=== PATIENT | female | born 1945 | race Hispanic/Latino ===

== ENCOUNTER → 2017-03-01 | Outpatient (CLI) | payer MEDICARE ==
[~2017-03-01] MED LIST: AMLO10TA4 PO; ASPI-555 PO; CALC600T12 PO; LISI40TA4 PO; METF500T6 PO; MULT-1301 PO; OMEG-148 PO; PRAV40TA3 PO
== END | disposition home or self-care (01) ==
LOC: SHCH 12:39
PROVIDERS: ATTEND Internal Medicine Cardiovascular Disease
DX: I87.2 Venous insufficiency (chronic) (peripheral) (principal)
CPT/HCPCS: 93970

== ENCOUNTER 2017-03-12 08:38 | Day surgery (SDC) | payer MEDICARE ==
[~2017-03-12] VITALS: Ht 160 cm; Wt 86.2 kg
[~2017-03-12 08:38] MED LIST changes: +SODIUM CHLORIDE 0.9% 1000ML 1,000 ML IV ONE
[2017-03-12 09:40] VITALS: BP 152/67
[2017-03-12] MEDS ORDERED: MIDAZOLAM HCL 1 MG/ML 2ML VIAL ONE (11:22)
[2017-03-12] MEDS ORDERED: MEPERIDINE-PF 50 MG/ML SYG ONE ×2 (11:22)
[2017-03-12 11:42] VITALS: BP 107/58
== END 2017-03-12 12:35 ==
LOC: ENDO 08:38 → DAH 08:38 → ENDO 12:35
PROVIDERS: ATTEND Internal Medicine Gastroenterology
DX: Z12.11 Encounter for screening for malignant neoplasm of colon (principal); K57.30 Diverticulosis of large intestine without perforation or abscess without bleeding; I10 Essential (primary) hypertension; E78.5 Hyperlipidemia, unspecified; M19.90 Unspecified osteoarthritis, unspecified site; E11.39 Type 2 diabetes mellitus with other diabetic ophthalmic complication; H40.9 Unspecified glaucoma; Z90.49 Acquired absence of other specified parts of digestive tract; Z79.899 Other long term (current) drug therapy; Z98.890 Other specified postprocedural states; Z79.84 Long term (current) use of oral hypoglycemic drugs
CPT/HCPCS: 82948 ×2; A4606; G0121; J2175 ×2; J2250; J7030

== ENCOUNTER → 2023-09-03 | Outpatient (CLI) | payer MEDICARE ==
[~2023-09-03] MED LIST changes: -ASPI-555 PO; +ASPI-556 PO; +CALC-1125 PO; -CALC600T12 PO; -LISI40TA4 PO; +LISI40TA9 PO; +METF-444 PO; -METF500T6 PO; -SODIUM CHLORIDE 0.9% 1000ML 1,000 ML IV ONE
== END | disposition home or self-care (01) ==
LOC: SHCH 09:05
PROVIDERS: ATTEND Internal Medicine Cardiovascular Disease
DX: I08.3 Combined rheumatic disorders of mitral, aortic and tricuspid valves (principal); I11.9 Hypertensive heart disease without heart failure; R01.1 Cardiac murmur, unspecified; I45.10 Unspecified right bundle-branch block; E11.9 Type 2 diabetes mellitus without complications; E78.5 Hyperlipidemia, unspecified; I44.7 Left bundle-branch block, unspecified; I48.91 Unspecified atrial fibrillation
CPT/HCPCS: 93306

== ENCOUNTER → 2024-04-09 | Outpatient (CLI) | payer MEDICARE | END | disposition home or self-care (01) | LOC: SHCH 07:55 | PROVIDERS: ATTEND Internal Medicine Cardiovascular Disease | DX: I48.19 Other persistent atrial fibrillation (principal) | CPT/HCPCS: 93306 ==

== ENCOUNTER 2024-06-20 08:38 | Day surgery (SDC) | payer MEDICARE ==
[2024-06-18 08:58] LABS: BASOPHILS # (AUTO) 0.05 K/uL (0.00-0.20); BASOPHILS % (AUTO) 0.8 % (0.0-5.0); EOSINOPHILS # (AUTO) 0.07 K/uL (0.00-0.70); EOSINOPHILS % (AUTO) 1.1 % (0.0-8.0); HEMATOCRIT 32.6 % (36-48); IMMATURE GRANULOCYTE ABSOLUTE 0.02 K/uL (0-1); LYMPHOCYTES # (AUTO) 1.2 K/uL (1.0-4.8); LYMPHOCYTES % (AUTO) 17.8 % (21.0-51.0); MEAN CORPUSCULAR HEMOGLOBIN 30.7 pg (27.0-33.0); MEAN CORPUSCULAR HGB CONC 33.4 g/dL (32.0-36.0); MEAN CORPUSCULAR VOLUME 91.8 fL (79-99); MONOCYTES # (AUTO) 0.7 K/uL (0.1-1.0); MONOCYTES % (AUTO) 11.2 % (3.0-13.0); NEUTROPHILS # (AUTO) 4.4 K/uL (1.8-7.7); NEUTROPHILS % (AUTO) 68.8 % (40.0-77.0); PLATELET COUNT (AUTO) 230 K/uL (130-400); RED BLOOD CELL COUNT(AUTO) 3.55 MIL/uL (4.00-5.50); RED CELL DISTRIBUTION WIDTH 15.5 % (11.0-15.5); WHITE BLOOD COUNT (AUTO) 6.5 K/uL (4.8-10.8)
[2024-06-18 09:05] LABS: CREATININE 1.1 mg/dL (0.5-1.0)
[2024-06-18 09:06] VITALS: BP 140/60; PULSE 60; RESP 18; TEMP 97
--- NOTE | 2024-06-18 09:20 | NUR ---
notified dr jones was informed by of potassium level. received orders to repeat but pt left and no answer after multiple attempts and messages left. will continue to try to reach daughter and pt.
[2024-06-18 10:57] LABS: POTASSIUM 5.4 mmol/L (3.5-5.1)
--- NOTE | 2024-06-18 11:21 | NUR ---
preop pt had repeat bmp done. potassium level 5.4. dr jones notified and received orders to repeat potassium on admission day.
[~2024-06-20] VITALS: Ht 154.9 cm; Wt 64.9 kg
[~2024-06-20 08:38] MED LIST changes: +ALEN70TA80 PO; -AMLO10TA4 PO; +APIX5TAB PO; -ASPI-556 PO; +ATOR20TA65 PO; -CALC-1125 PO; +CYCL30DR OP; +DAPA10TA PO; +DRON400T7 PO; +FURO20TA4 PO; +IRON COMPLEX PO; +LATA2.5D14 OU; +METO50TA18 PO; -MULT-1301 PO; -OMEG-148 PO; +OMEG100033 PO; +PANT40TA54 PO; +PIOG30TA70 PO; -PRAV40TA3 PO; +[UNRECOGNIZED DRUG - CODE] PO; +[UNRECOGNIZED DRUG - OTHER] PO
--- NOTE | 2024-06-20 09:03 | EKG ---
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
[2024-06-20 09:10] VITALS: BP 135/69; PULSE 65; RESP 15; TEMP 97.3
[2024-06-20] MEDS ORDERED: proPOFol 10 MG/ML 20ML VIAL IV ONE (09:40)
--- NOTE | 2024-06-20 10:16 | NUR ---
PT SYNCHRONIZED CARDIOVERTED AT [address] ESCOBAR PT TOLERATED WELL NAD VSS.
--- NOTE | 2024-06-20 10:22 | EKG ---
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 : 1945 Requested By: RACHEL ESCOBAR Order Number: [id number] Reading MD: Pedro Gil Measurements Intervals [place] Rate: 44 P: 76 MO: 214 QRS: -46 QRSD: 128 T: 10 QT: 510 QTc: 436 Interpretive Statements Marked sinus bradycardia with 1st degree AV block with premature atrial complexes Left axis deviation Nonspecific intraventricular block Compared to ECG 06/20/2024 09:01:37 Atrial premature complex(es) now present First degree AV block now present Atrial fibrillation no longer present Ventricular premature complex(es) no longer present Myocardial infarct finding no longer present Electronically Signed On 06-22-2024 13:05:09 CDT by Pedro Gil Please click the below link to view image of tracing.
[2024-06-20 10:25] VITALS: BP 114/37; PULSE 43; RESP 15; TEMP 97.1
--- NOTE | 2024-06-20 10:25 | NUR ---
PT AWAKE SPEAKING WITH STAFF VSS NAD DAUGHTER AT BEDSIDE.
[2024-06-20 10:40] VITALS: BP 103/39; PULSE 43; RESP 15
[2024-06-20 10:55] VITALS: BP 117/37; PULSE 43; RESP 15
[2024-06-20 11:10] VITALS: BP 126/47; PULSE 44; RESP 15
--- NOTE | 2024-06-26 10:18 | PRN ---
Procedure Note Date of procedure: 06/20/24 Diagnosis: Persistent atrial fibrillation Procedure: Cardioversion Physician: Manav Escobar MD The patient was brought to the day patient area in a fasting state. Anesthesia was provided by the anesthesia service. Cardioversion was performed with a synchronized shock at 150 joules resulting in sinus rhythm. The patient tolerated the procedure well. Final diagnosis: Persistent atrial fibrillation, status post successful cardiove rsion Disposition: The patient will be discharged later today and will follow up with me in the office in approximately two weeks. MANAV ESCOBAR MD June 26, 2024 10:17
== END 2024-06-20 11:15 | disposition home or self-care (01) ==
LOC: DAH 08:38
PROVIDERS: ATTEND Internal Medicine Cardiovascular Disease
DX: I48.19 Other persistent atrial fibrillation (principal); I44.0 Atrioventricular block, first degree; E11.9 Type 2 diabetes mellitus without complications; E78.5 Hyperlipidemia, unspecified; I11.0 Hypertensive heart disease with heart failure; I50.9 Heart failure, unspecified; Z90.49 Acquired absence of other specified parts of digestive tract; Z96.651 Presence of right artificial knee joint; Z88.1 Allergy status to other antibiotic agents; Z79.899 Other long term (current) drug therapy
CPT/HCPCS: 80048 ×2; 85025; 36415 ×2; 92960; 93005 ×2; 84132; 82948; J2704; A4620; A4215; A4222; A4221; A4663; A4216; A4606; A4223 ×3; J3490

== ENCOUNTER 2024-08-06 07:15 | Day surgery (SDC) | payer MEDICARE ==
[2024-08-04 10:27] LABS: BASOPHILS # (AUTO) 0.04 K/uL (0.00-0.20); BASOPHILS % (AUTO) 0.9 % (0.0-5.0); EOSINOPHILS # (AUTO) 0.03 K/uL (0.00-0.70); EOSINOPHILS % (AUTO) 0.7 % (0.0-8.0); HEMATOCRIT 33.8 % (36-48); IMMATURE GRANULOCYTE ABSOLUTE 0.02 K/uL (0-1); LYMPHOCYTES # (AUTO) 1.2 K/uL (1.0-4.8); LYMPHOCYTES % (AUTO) 26.7 % (21.0-51.0); MEAN CORPUSCULAR HEMOGLOBIN 30.7 pg (27.0-33.0); MEAN CORPUSCULAR HGB CONC 33.1 g/dL (32.0-36.0); MEAN CORPUSCULAR VOLUME 92.6 fL (79-99); MONOCYTES # (AUTO) 0.5 K/uL (0.1-1.0); MONOCYTES % (AUTO) 11.4 % (3.0-13.0); NEUTROPHILS # (AUTO) 2.7 K/uL (1.8-7.7); NEUTROPHILS % (AUTO) 59.9 % (40.0-77.0); PLATELET COUNT (AUTO) 209 K/uL (130-400); RED BLOOD CELL COUNT(AUTO) 3.65 MIL/uL (4.00-5.50); RED CELL DISTRIBUTION WIDTH 16.9 % (11.0-15.5); WHITE BLOOD COUNT (AUTO) 4.6 K/uL (4.8-10.8)
[2024-08-04 10:38] LABS: CREATININE 1.1 mg/dL (0.5-1.0); POTASSIUM 4.4 mmol/L (3.5-5.1)
--- NOTE | 2024-08-04 10:50 | EKG ---
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
[2024-08-04 11:23] VITALS: BP 145/64; PULSE 54; RESP 18; TEMP 97.7
[~2024-08-06] VITALS: Ht 154.9 cm; Wt 62.7 kg
[~2024-08-06 07:15] MED LIST changes: +AMIO200T73 PO; -DRON400T7 PO; +LISI40TA15 PO; -LISI40TA9 PO; +METO25TA6 PO; -METO50TA18 PO
[2024-08-06 07:40] VITALS: BP 159/84; PULSE 59; RESP 15; TEMP 97.4
--- NOTE | 2024-08-06 08:14 | EKG ---
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 : 1945 Requested By: RACHEL ESCOBAR Order Number: [id number] Reading MD: James Anthony Measurements Intervals [place] Rate: 71 P: 0 VT: 0 QRS: 236 QRSD: 140 T: 84 QT: 434 QTc: 474 Interpretive Statements Atrial fibrillation Nonspecific intraventricular conduction delay Inferior infarct, old Anterior infarct, old Compared to ECG 08/04/2024 09:56:23 Intraventricular conduction delay now present Myocardial infarct finding now present Sinus rhythm no longer present INTRAVENTRICULAR CONDUCTION DELAYstill present Early repolarization no longer present Electronically Signed On 08-06-2024 20:59:45 CDT by James Anthony Please click the below link to view image of tracing.
[2024-08-06] MEDS ORDERED: 0.9%NACL 1000ML 1,000 ML IV SCH (09:30)
[2024-08-06] MEDS ORDERED: proPOFol 10 MG/ML 20ML VIAL IV ONE (09:39)
--- NOTE | 2024-08-06 10:12 | NUR ---
PT SYNCHRONIZED CARDIOVERTED [address] ESCOBAR PT TOLERATED WELL NAD VSS
--- NOTE | 2024-08-06 10:19 | NUR ---
PT AWAKE SPEAKING WITH STAFF PASTOR BASILIO.
--- NOTE | 2024-08-06 10:20 | EKG ---
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 : 1945 Requested By: RACHEL ESCOBAR Order Number: [id number] Reading MD: Pedro Gil Measurements Intervals [place] Rate: 40 P: 33 TX: 243 QRS: -57 QRSD: 142 T: 0 QT: 524 QTc: 430 Interpretive Statements Sinus bradycardia Prolonged [place] interval Left bundle branch block Probable anteroseptal infarct, recent Compared to ECG 08/06/2024 07:42:00 First degree AV block now present Left bundle-branch block now present Atrial fibrillation no longer present Intraventricular conduction delay no longer present Myocardial infarct finding still present Electronically Signed On 08-08-2024 10:09:20 CDT by Pedro Gil Please click the below link to view image of tracing.
[2024-08-06 10:25] VITALS: BP 152/67; PULSE 58; RESP 12; TEMP 97.8
[2024-08-06 10:35] VITALS: BP 129/49; PULSE 39; RESP 12
[2024-08-06 10:45] VITALS: BP 140/50; PULSE 41; RESP 14
[2024-08-06 10:55] VITALS: BP 134/56; PULSE 42; RESP 14
[2024-08-06 11:05] VITALS: BP 152/67; PULSE 41; RESP 15
--- NOTE | 2024-08-06 11:10 | NUR ---
BOTH PT AND DAUGHTER GIVEN VERBAL AND WRITTEN DISCHARGE INSTRUCTIONS IV REMOVED SITE ASYMPTOMATIC. BOTH GIVEN INSTRUCTIONS ON MEDICATION CHANGES VERBALLY AND WRITTEN PER DR. ESCOBAR. PT TAKEN OUT VIA WHEELCHAIR DAUGHTER DRIVING.
--- NOTE | 2024-08-19 15:22 | PRN ---
Procedure Note Date of procedure: 08/06/2024 Diagnosis: Persistent atrial fibrillation Procedure: Cardioversion Physician: Manav Escobar MD The patient was brought to the day patient area in a fasting state. Anesthesia was provided by the anesthesia service. Cardioversion was performed with a synchronized shock at 150 joules resulting in sinus rhythm. The patient tolerated the procedure well. Final diagnosis: Persistent atrial fibrillation, status post successful cardi oversion Disposition: The patient will be discharged later today and will follow up with me in the office in approximately two weeks. MANAV ESCOBAR MD Aug 19, 2024 15:22
== END 2024-08-06 11:15 | disposition home or self-care (01) ==
LOC: DAH 07:15
PROVIDERS: ATTEND Internal Medicine Cardiovascular Disease
DX: I48.19 Other persistent atrial fibrillation (principal); I42.0 Dilated cardiomyopathy; I11.0 Hypertensive heart disease with heart failure; I73.9 Peripheral vascular disease, unspecified; I44.7 Left bundle-branch block, unspecified; I25.2 Old myocardial infarction; E11.9 Type 2 diabetes mellitus without complications; E78.5 Hyperlipidemia, unspecified; I44.0 Atrioventricular block, first degree; I50.9 Heart failure, unspecified; Z88.1 Allergy status to other antibiotic agents; Z96.651 Presence of right artificial knee joint; Z90.49 Acquired absence of other specified parts of digestive tract; Z79.84 Long term (current) use of oral hypoglycemic drugs; Z79.01 Long term (current) use of anticoagulants; Z79.899 Other long term (current) drug therapy
CPT/HCPCS: 80048; 85025; 36415; 93005 ×3; 92960; 82948; J2704; A4620; A4215; A4222; A4221; A4663; A4216; A4606; A4223 ×3; J3490

== ENCOUNTER → 2024-09-15 | Outpatient (CLI) | payer MEDICARE ==
[~2024-09-15] MED LIST changes: +IOHEXOL 350 MG/ML 100ML INFUS..BTL IV ONE; -LATA2.5D14 OU; +LATA2.5D7 OU
--- NOTE | 2024-09-21 15:24 | CARDIOLOGY ---
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 A dedicated, limited window, coronary imaging protocol was used, with single breath-hold, retrospective ECG gating, and automated arrhythmia rejection. 100 cc of low osmolar contrast agent: Omnipaque 350 was delivered via a 18-gauge IV catheter in the right antecubital fossa, using a power injector and followed by 60 cc of normal saline bolus as a chaser. Collimated images were reformatted at 0.5 mm intervals, and sent to an offline independent workstation for interpretation, using 3D anatomic reconstructions: Curved multiplanar reconstructions, maximum intensity projections, and mu ltiplanar imaging. No metoprolol was administered prior to scanning due to low baseline heart rate. No SL nitroglycerin was given. CORONARY ARTERY DESCRIPTIONS: The coronary arteries arise in normal position. Left main coronary artery: Normal caliber vessel that bifurcates into the LAD and LCx. No stenosis. Left anterior descending coronary artery: Normal caliber vessel and gives rise to diagonal and septal branches. There is mixed calcified and noncalcified plaque in the proximal and mid LAD with 20-30% stenosis. Left circumflex coronary artery: Normal caliber, nondominant and gives rise to a large OM branch. No stenosis. Right coronary artery: Large, dominant vessel giving rise to the PL and PDA branches. No stenosis. CAD-RADs: 2, mild non-obstructive CAD. Thoracic Aorta: Normal diameter. Harleen Bowling MD [facility] HARLEEN BOWLING MD Sep 21, 2024 15:24
== END | disposition home or self-care (01) ==
LOC: RAH 09:15
PROVIDERS: ATTEND Internal Medicine Cardiovascular Disease
DX: I25.10 Atherosclerotic heart disease of native coronary artery without angina pectoris (principal); R07.9 Chest pain, unspecified; R94.31 Abnormal electrocardiogram [ECG] [EKG]
CPT/HCPCS: 75574; Q9967

== ENCOUNTER → 2025-01-06 | Outpatient (CLI) | payer MEDICARE ==
[~2025-01-06] MED LIST changes: -IOHEXOL 350 MG/ML 100ML INFUS..BTL IV ONE
--- NOTE | 2025-01-08 05:19 | HMCIMG ---
Gastric Emptying Scan. EXAM: Nuclear Medicine Gastric Emptying Scan. INDICATION: Abdominal pain, bloating. REFERENCE EXAMINATION: None. TECHNIQUE: 1.5 mCi of Tc99m sulfur colloid with scrambled eggs. FINDINGS: Transit of radiopharmaceutical is seen from the stomach into the small bowel. 50% gastric emptying achieved in 87 minutes. The percent gastric retention of the stomach at approximately 1 hour (normal 30-90%). The present gastric retention of the stomach at approximately 2 hours (normal less than 40%). The percent gastric retention of the stomach at approximately 3 hours (normal less than 30%). The percent gastric retention of the stomach at approximately 4 hours (normal less than 10%). IMPRESSION: Scintigraphic findings suggest normal gastric emptying. /Bryan
== END | disposition home or self-care (01) ==
LOC: RAH 01-01 07:01
PROVIDERS: ATTEND Internal Medicine Gastroenterology
DX: R68.81 Early satiety (principal); R14.2 Eructation
CPT/HCPCS: 78264; A9541